=== PATIENT | male | born 1990 | race Caucasian/White ===

== ENCOUNTER 2021-02-11 23:39 | Emergency (ER) | payer SELFPAY | END 2021-02-12 01:37 | disposition home or self-care (01) | LOC: FER 23:39 | DX: S06.0X1A Concussion with loss of consciousness of 30 minutes or less, initial encounter (principal); F17.210 Nicotine dependence, cigarettes, uncomplicated; W19.XXXA Unspecified fall, initial encounter | CPT/HCPCS: 70450 ==

== ENCOUNTER 2021-05-29 12:55 | Emergency (ER) | payer OTHER | END 2021-05-29 14:42 | disposition home or self-care (01) | LOC: FER 12:55 | DX: S20.222A Contusion of left back wall of thorax, initial encounter (principal); W19.XXXA Unspecified fall, initial encounter; Y92.009 Unspecified place in unspecified non-institutional (private) residence as the place of occurrence of the external cause | CPT/HCPCS: 71101 ==

== ENCOUNTER 2021-07-27 20:27 | Emergency (ER) | payer SELFPAY ==
[2021-07-27 20:49] LABS: BASOPHIL 0.5 % (0-2); EOSINOPHIL 1.3 % (0-5); HCT 49.5 % (42.0-52.0); HGB 17.6 g/dl (13.2-18.0); LYMPHOCYTE 36.8 % (15-48); MCH 32.7 pg (25.0-31.0); MCHC 35.6 g/dL (32.0-36.0); MPV 10.2 fL (6.0-9.5); NRBC 0; PLT 100 K/uL (150-400); RBC 5.38 M/uL (4.70-6.00); RDW 12.6 % (11.5-14.0); WBC 5.5 K/uL (4.0-10.5)
[2021-07-27 21:04] LABS: BUN/CREAT RATIO (CALC) 14.8 RATIO; CREATININE 0.54 mg/dL (0.67-1.17); POTASSIUM 3.4 mmol/L (3.5-5.1)
[2021-07-27 21:39] LABS: CORONAVIRUS 2019 SARS-COV-2 NEGATIVE (NEGATIVE); INFLUENZA A NAA NEGATIVE (NEGATIVE)
[2021-07-27 22:09] LABS: AMPHETAMINES NEGATIVE (NEGATIVE); BARBITURATES NEGATIVE (NEGATIVE); ECSTASY (MDMA) NEGATIVE (NEGATIVE); MARIJUANA (THC) NEGATIVE (NEGATIVE); METHADONE NEGATIVE (NEGATIVE); OPIATES NEGATIVE (NEGATIVE)
[2021-07-27 22:10] LABS: OXYCODONE NEGATIVE (NEGATIVE)
[2021-07-27] MEDS ORDERED: ATIVAN1 MG PO (22:12)
== END 2021-07-27 22:25 | disposition home or self-care (01) ==
LOC: FER 20:27
PROVIDERS: Emergency Medicine; Nurse Practitioner Family
DX: F41.9 Anxiety disorder, unspecified (principal); R07.9 Chest pain, unspecified; R51.9 Headache, unspecified; Z20.822 Contact with and (suspected) exposure to COVID-19
CPT/HCPCS: 36415; 70450; 71045; 80048; 80305; 84484; 85025; 93005; G0480; U0002